=== PATIENT | female | born 1950 | race Two or more races ===

== ENCOUNTER 2021-01-25 09:44 | Outpatient (CLI) | payer OTHER | END 2021-01-25 14:24 | disposition home or self-care (01) | LOC: SONOGRAMA 09:44 | PROVIDERS: ATTEND Pathology Anatomic Pathology & Clinical Pathology | DX: D34 Benign neoplasm of thyroid gland (principal); E04.1 Nontoxic single thyroid nodule; E07.9 Disorder of thyroid, unspecified; E04.8 Other specified nontoxic goiter ==

== ENCOUNTER 2023-07-26 11:09 | Outpatient (CLI) | payer OTHER | END 2023-07-26 11:13 | disposition home or self-care (01) | LOC: SONOGRAMA 11:09 | PROVIDERS: ATTEND Pathology Anatomic Pathology & Clinical Pathology | DX: D34 Benign neoplasm of thyroid gland (principal); E07.89 Other specified disorders of thyroid; E04.1 Nontoxic single thyroid nodule ==

== ENCOUNTER 2024-06-12 09:33 | Outpatient (CLI) | payer OTHER | END 2024-06-12 09:52 | disposition home or self-care (01) | LOC: SONOGRAMA 09:33 | DX: N84.0 Polyp of corpus uteri (principal) ==